=== PATIENT | male | born 1960 | race Caucasian/White ===

== ENCOUNTER 2020-04-12 08:13 | Day surgery (SDC) | payer BC ==
--- NOTE | 2020-04-12 06:39 | EKG ---
Test Date: 2020-04-11 Test Time: 10:33:47 Cardiovascular Physician Assistant: ALESHIA MEASUREMENT RESULTS: Intervals: Rate: 94 KS: 182 QRSD: 70 QT: 346 QTc: 432 [place]: P: 67 KS: 182 QRS: 10 T: 73 INTERPRETIVE STATEMENTS: Sinus rhythm with occasional and consecutive premature ventricular complexes Abnormal ECG No previous ECG available for comparison Electronically Signed On 04-12-20 06:37:42 CDT by Salazar Goodson
--- OUTSIDE RECORDS SUMMARY | 2020-04-12 08:25 | XMS REPORT | Continuity of Care Document ---
:1960 Author Organization [facility] t Address [facility] [place] [address] Care Team Providers Name Role Phone Unavailable Unavailable Unavailable Problems Condition Condition Condition Status Onset Resolution Last Treating Co mments Source Name Details Category Date Date Treatment Clinician Date Hyperchole Hyperchole Problem Active [facility] sterolemia sterolemia 5-21 da 00:00: Medical 00 Group Allergies, Adverse Reactions, Alerts This patient has no known allergies or adverse reactions. Social History Smoking Status Start Date Stop Date Source Light Tobacco Smoker [facility] Medications Ordered Filled Start Stop Current Ordering Indication Dosage Frequency Signature Comments Components Source Medication Medication Date Date Medication? Clinician (SIG) Name Name Ambien 5 mg Ambien 5 mg No 1 Q1D Ambien 5 [place] tablet Take tablet Take mg tablet da 1 tablet 1 tablet Take 1 Medic al every day every day tablet Phillip up by oral by oral every day route. route. by oral route. finasteride finasteride No finasterid [place] 5 mg tablet 5 mg tablet e 5 mg da tablet [facility] hydrocodone hydrocodone No hydrocodon [place] 10 10 e 10 da mg-acetamin mg-acetamin mg-acetami Medical ophen 325 ophen 325 nophen 325 Group mg tablet mg tablet mg tablet Take 1 Take 1 Take 1 tablet tablet tablet every 4 every 4 every 4 hours by hours by hours by oral route. oral route. oral route. levothyroxi levothyroxi No levothyrox [place] ne 75 mcg ne 75 mcg ine 75 mcg da tablet tablet tablet [facility] simvastatin simvastatin No simvastati [place] 40 mg 40 mg n 40 mg da tablet tablet tablet [facility] testosteron testosteron No testostero [place] e cypionate e cypionate ne d a 200 mg/mL 200 mg/mL cypionate Medical intramuscul intramuscul 200 mg/mL Group ar oil ar oil intramuscu lar oil Vital Signs Vital Name Observation Time Observation Value Comments Source BP Diastolic 2020-03-14 00:00:00 80 mm[Hg] [facility] Height 2020-03-14 00:00:00 71 [in_i] [facility] BMI (Body Mass 2020-03-14 00:00:00 26.7 kg/m2 [facility] Index) Group BP Systolic 2020-03-14 00:00:00 128 mm[Hg] [facility] Body Weight 2020-03-14 00:00:00 191.6 [lb_av] [facility] Procedures This patient has no known procedures. Encounters Start End Encounter Admission Attending Care Care Encounter Source Date/Time Date/Time Type Type Clinicians Facility Department ID 2020-03-14 2020-03-14 [facility] [place] - [id number] [facility] 00:00:00 00:00:00 Morales Davis MD: [facility] [address], [place] [address] , Ph. [phone] Results This patient has no known results.
--- OUTSIDE RECORDS SUMMARY | 2020-04-12 08:25 | XMS REPORT | Encounter Summary ---
:1960 Author Care Team Providers Name Role Phone Saad Bright Primary Care Provider [phone] Reason for Visit New Patient Instructions 1. Screening for malignant neopl asm of colon colonoscopy screening (PRO C) 2. Gastro-esophageal reflux dise ase with esophagitis endoscopy, [facility] (PROC) esophageal manometry (SURG ) esophagogastroduodenoscopy (SURG) Discussion Note: None recorded.Patient educational handouts: No information available. Plan of Care Reminders Provider Appointments None recorded. Lab None recorded. Referral None recorded. Procedures Colonoscopy Screening (PROC) 03/14/2020 Endoscopy, [place] (PROC) 03/14/2020 Surgeries Esophageal Manometry (SURG) 03/14/2020 Esophagogastroduodenoscopy (SURG) 03/14/2020 Imaging None recorded. Medications Name Start Date Ambien 5 mg tablet Take 1 tablet every day by oral route. finasteride 5 mg tablet hydrocodone 10 mg-acetaminophen 325 mg tablet Take 1 tablet every 4 hours by oral route. levothyroxine 75 mcg tablet simvastatin 40 mg tablet testosterone cypionate 200 mg/mL intramuscular oil Medications Administered None recorded. Vitals Height Weight BMI Blood Pressure 5 ft 11 in 191.6 lbs 26.7 kg/m2 128/80 mm[Hg] Results Lab Results None recorded. Allergies Code Code System Name Reaction Severity Status Onset NKDA Problems Name Status Onset Date Source Hypercholesterolemia Active 03/14/2020 Procedures Date Name Performed by 10/25/2003 Knee Surgery Information not avai lable Vaccine List None recorded. Social History Tobacco Smoking Status Light Tobacco Smoker (10/28 PPD) Past Encounters 03/14/2020 Screening for Malignant Neoplasm of [place] n; Gastro-esophageal Reflux Disease with Esophagitis Jony Romano MD: [address] [place] [address] [address], [place] [address], Ph. [phone] History of Present Illness Note: cc: screening colonoscopy<div>HPI: 59 yo male with 2 prior colonoscopies, last one in 2011. </div><div>Also complains of reflux - 20 yrs on PPI with heartburn and regurgitation.</div><div>pmh: cholesterol</div><div>psh: colonoscopy, multiple ortho, ing hernia as an </div><div>tob +</div><div>etoh + </div><div>no anticoag</div><div>ros ow neg</div><div>Reflux

Discussed and illustrated the anatomy associated with gastro-esophageal reflux disease (GERD). Discussed signs and symptoms of GERD and relationship of typical signs and symptoms to atypical signs and symptoms referred to as Laryngeal-Pharyngeal Reflux Disease (LPR). Reviewed the concept of pressure differential that defines the lower esophageal sphincter (LES) and the signs and symptoms of esophageal dysmotility and the similarity and overlap of these with the signs and symptoms of GERD. Discussed the signs and symptoms of gastroparesis and the similarity and overlap of these with the signs and symptoms of GERD. Discussed the signs and symptoms of biliary disease and the similarity and overlap of these with the signs and symptoms of GERD. Reviewed the workup to identify and distinguish GERD from other disease processes. Discussed medical therapy for gastroparesis and side effects of the two major medications: metoclopramide (tardive dyskinesia) and erythromycin (interference with cholesterol medications, rash and sun sensitivity). Discussed surgery for gastroparesis (pyloromyotomy), which is not recommended at the time of hiatal repair and fundoplication. Discussed surgical therapy for biliary dyskinesia or gallstones (laparoscopic cholecystectomy)

Reviewed lifestyle changes for GERD. Reviewed medical therapies for GERD. Discussed risks of H2 antagonist therapy and proton pump inhibitor therapy including altered normal physiology, decreased absorption of heavy metals and secondary consequences such as early bone loss and fracture. Increased risk of pneumonias and colitis. Increased incidence of esophageal cancer.

Discussed surgical therapy of GERD and indications for surgical therapy. Discussed history of hiatal hernia repairs and Maya fundoplication. Discussed side effect of bloating syndrome. Reviewed alternatives to Maya fundoplication including Canelo, Hill, Toupet and Pamela modifications. Discussed transoral incisionless fundoplication and absence of bloating syndrome from this procedure as a defining feature of the procedure. Discussed the evaluation of the esophageal hiatus and indications for hiatal hernia repair.

Reviewed risks including bleeding, infection, vagalnerve dysfunction, recurrent GERD, perforation of esophagus or stomach, leak of intestinal content, possible need for longer hospital stay, possible need for further procedures. Reviewed the typical hos pital stay associated with transoral incisionless fundoplication and hiatal hernia repair. Discussedthe postoperative experience, pain and dietary limitations including no carbonated beverages for lifetime. Discussed the six week postoperative recovery diet. Discussed dysphagia and esophageal spasm. R eviewed esophageal musculature and pain associated with strain of the esophageal musculature. Reviewed GI cocktail for esophageal spasm and dysphagia. Discussed possible need for esophageal dilation postoperatively due to fibrosis of esophagus in the setting of prolonged GERD. Discussed referred pain from irritation of the phrenic nerve to the shoulder, compounded medications that may improve pain. Pt verbalized understanding of workup, procedure and risks, and all questions were answered to the patient's satisfaction.

Handout summarizing this information has been provided to the patient. Symptoms survey given to pt.</div><div>
</div><div>Screening Colonoscopy

Discussed and illustrated colon anatomy. Discuss ed signs, symptoms and risks of colon cancer. Reviewed incidence of colon cancer and screening criteria. Discussed interventions to remove or beryl polyps or masses. Discussed iv general anesthesia and need for ride home postop. Reviewed diverticular disease, hemorroids and AVM. Discussed benefits and risks to include bleeding, infection, perforation and gas pains. Discussed prep at length and gave instructions in writing. Discussed repeat colonoscopy criteria. Discussed outpatient procedure. Pt verbalized understanding of procedure and risks, and all questions were answered to the patient's satisfaction. Pt wishes to proceed with colonoscopy. Prep instructions given to the patient in writing.</div><div>
</div> Review of Systems General Surgery ROS Reported By: Patient Constitutional: Constitutional: no fever, no night sweats, no significant weight gain, no significant weight loss, no exercise intolerance Eyes: Eyes: no dry eyes, no irrita tion, no vision change ENMT: Ears: no difficulty hearing, no ear pain. Nose: no frequent nosebleeds, no nose/sinus pr oblems. Mouth/Throat: no sore throat, no bleeding gums, no snoring , no dry mouth, no mouth ulcers, no oral abnormalities, no teeth problems, No Post Nasal Dripping, Constantly clearing the thro at, hiccups, itching throat, (normal) weak voice: constant Respiratory: Respiratory: no cough, no wh eezing, no shortness of breath, no coughing up blood Cardiovascular: Cardiovascular: no chest kary n, no arm pain on exertion, no shortness of breath when wal sarah, no shortness of breath when lying down, no palpitations, no kn own heart murmur Gastrointestinal: Gastrointestinal: no abdomin al pain, no vomiting, normal appetite, no diarrhea, not vomiting bl ood Genitourinary: Genitourinary: no incontinen ce, no difficulty urinating, no hematuria, no increased freq uency Musculoskeletal: Musculoskeletal: no muscle a ches, no muscle weakness, no arthralgias/joint pain, no b ack pain, no swelling in the extremities Integumentary: Skin: no abnormal mole, no j aundice, no rashes Neurologic: Neurologic: no loss of consc iousness, no weakness, no numbness, no seizures, no dizziness, no h eadaches Physical Exam Pre-Op Exam Reported By: Patient Constitutional: General Appearance: healthy- appearing, well-nourished, well-developed Psychiatric: Orientation: to time, to miguelito ce, to person Skin: Inspection and palpation: no rash, no lesions, no induration Eyes: Pupils: PERRLA. EOM: EOMI ENMT: Lips, Teeth, and Gums: yosef l dentition Neck: Neck: supple, FROM Lungs: Auscultation: breath sounds normal, CTA except as noted, no wheezing, no rales/crackles, no rhonchi Cardiovascular: Heart Auscultation: RRR, no murmurs, no rubs, no gallops. Neck vessels: no carotid bruits. Pulses including femoral / pedal: normal throughout Abdomen: Bowel Sounds: normal. Inspec tion and Palpation: soft, non-distended, no tenderness (no guarding, no rebound), no masses, no CVA tenderness. Liver: no n-tender, no hepatomegaly. Spleen: non-tender, no splenomegaly Back: Thoracolumbar Appearance: no rmal curvature Musculoskeletal:: Joints, Bones, and Muscles: normal movement of all extremities, no malalignment, no tenderness. Extremities: no cyanosis, no edema, no varicosities Neurologic: Gait and Station: normal gai t, normal station. Cranial Nerves: grossly intact. Sensation: g rossly intact. Reflexes: DTRs 2+ bilaterally throughout
[2020-04-12] MEDS: OXYMETAZOLINE HCL 0.05% 15ML NAS ONE ×3 (08:44→09:09)
[2020-04-12] MEDS ORDERED: Ringers Lactate 1,000 ML IV ONE (08:47)
[2020-04-12] MEDS ORDERED: OXYMETAZOLINE HCL 0.05% 15ML NAS ONE (08:54)
[2020-04-12] MEDS ORDERED: LIDOCAINE 1% W/EPI 1:100,000 MDV 20 ML VIAL ONE (08:54)
[2020-04-12] MEDS ORDERED: NA CHLORIDE 0.9% 500 ML ONE (08:54)
[2020-04-12] MEDS ORDERED: MIDAZOLAM HCL 2 MG/2 ML INJ ONE (09:20)
[2020-04-12] MEDS ORDERED: propofoL 200 MG/20 ML VIAL IV ONE (09:20)
[2020-04-12] MEDS ORDERED: ROCURONIUM 50 MG/5 ML VIAL IV ONE (09:21)
[2020-04-12] MEDS ORDERED: dexAMETHasone 10 MG/ML VIAL ONE (09:21)
[2020-04-12] MEDS ORDERED: FENTANYL CITR 250 MCG/5 ML ONE (09:21)
[2020-04-12] MEDS ORDERED: LIDOCAINE 2% MPF 5 ML VIAL ONE (09:21)
--- NOTE | 2020-04-12 11:27 | P.BOP ---
Preoperative diagnosis: CRS, ITH, NO Postoperative diagnosis: same Primary procedure: NE with B max antrostomy with removal tissue Secondary procedure: ITR (submucosal) Crutching Contractor: NONE,NONE Estimated blood loss: 20ml Specimen: sinus contents Findings: large intramaxillary cysts Anesthesia: General Complications: None Implants: Propel Contour Fluids & blood products: crystalloid 750ml Transferred to: Recovery Room Condition: Good
[2020-04-12] MEDS ORDERED: ONDANSETRON 4 MG/2 ML VIAL ONE (12:07)
[2020-04-12] MEDS: HYDROMORPHONE HCL 1 MG/ML INJ ONE ×2 (12:16→12:25)
[2020-04-12] MEDS ORDERED: HYDROMORPHONE HCL 1 MG/ML INJ ONE (12:42)
[2020-04-12] MEDS ORDERED: ACETAMINOPHEN 325 MG TABLET ONE (13:15)
[2020-04-12 15:41] VITALS: BP 135/73; TEMP 97.9; O2SAT 92
--- NOTE | 2020-04-13 13:03 | OP ---
Date of Procedure: 04/12/2020 Surgeon: Danielle Valdivia MD Preoperative Diagnoses: Chronic maxillary sinusitis, nasal obstruction, and inferior turbinate hypertrophy. Postoperative Diagnoses: Chronic maxillary sinusitis, nasal obstruction, and inferior turbinate hypertrophy. Procedures: Bilateral nasal endoscopy with maxillary antrostomy and removal of sinus contents with bilateral submucous resection of inferior turbinates with downfracture of inferior turbinates. Indication For Procedure: Mr. Cervantes presented to the ENT Clinic and was treated with maximal medical therapy. He continued to have significant nasal obstruction. A CT scan demonstrated partial opacification of the bilateral maxillary sinuses with findings suggestive of mucous retention cyst versus nasal polyp. The patient was also noted to have large turbinates despite use of intranasal steroid spray. He was strongly cautioned that smoking increases risk of sinus disease and was encouraged to quit, but has been unsuccessful. Anesthesia: General. Estimated Blood Loss: 20 mL. Surgical Specimen: Sinus contents. Surgical Findings: Bilateral enlarged inferior turbinates and bilateral moderate size mucous retention cyst. Description Of Procedure: The patient was brought to the operating room. He was placed under general anesthesia via oral endotracheal tube. His preoperative COVID testing was negative. After successful intubation plane of anesthesia was achieved, the head of bed was rotated 90 degrees. The patient's nasal hairs were trimmed and the nasal cavity was packed with Afrin-soaked pledgets. The patient was draped in the standard fashion for nasal surgery. The nasal pledgets were removed and a 0-degree endoscope was used to perform a nasal endoscopy. Photo documentation was obtained of the middle meatus. The middle turbinate was medialized using a Garland and Afrin-soaked pledget was packed into the middle meatus. After time for effect, the pledget was removed. The uncinate process was palpated and medialized using a maxillary seeker. The uncinate was then removed using a backbiter and 90-degree Blakesley. The antrostomy was noted and enlarged by removal of tissue using a 90-degree Blakesley. The maxillary antrostomy and sinus were reviewed using a 70-degree endoscope. The floor of the sinus was noted to have a moderate-sized mucous retention cyst. This cyst was removed using a maxillary Heuwiser and a Giraffe instrument to remove the surface. After completion, the medial meatus was packed with Afrin-soaked pledgets and attention was turned to the contralateral side. The similar procedure and findings were noted. After completing the maxillary antrostomy, the microdebrider fitted with inferior turbinate blade was prepared. The inferior turbinates were injected with 1% lidocaine with epinephrine to aid in hemostasis. The #15 blade was used to make an incision in the anterior portion of the inferior turbinate. A Iberia elevator was used to develop a submucosal pocket. Inferior turbinate blade was then used to remove submucosal tissue from the inferior turbinate. Some additional tissue from the most inferior aspect was removed in order to optimize the patient's nasal airway. A Platt elevator was then used to downfracture the inferior turbinates in such a way to again improve the patient's nasal airway. The nose was packed with Afrin-soaked pledgets for several minutes. After removal, oozing was minimal. Photo documentation was obtained of the maxillary antrostomies. There was some inadvertent elevation of the mucosa along the posterior aspect of the antrostomy during dissection and removal of the sinus cyst and the decision was made to place a Propel Contour stent in the maxillary antrostomy in order to help this tissue adhere posteriorly and prevent scarring or stenosis of the antrostomy. Contour stents were placed bilaterally. The nasopharynx and nasal cavity were thoroughly suctioned. The oropharynx was suctioned and the patient was returned to care of Anesthesia for awakening and extubation. The decision was made to forego placement of an orogastric tube due to patient's recent procedure and placement of a Hollingsworth acid monitor. The patient was transported to the recovery room in stable condition and will follow up with Dr. Valdivia in about 10 days for evaluation of healing. He is strictly instructed to avoid smoking, to use nasal saline irrigations 3-4 times daily, and to call Dr. Valdivia with any problems, questions, or concerns. OREN/JATIN Voice ID: [id number] Report ID: [id number]
== END 2020-04-12 13:32 | disposition home or self-care (01) ==
LOC: OR 08:13
PROVIDERS: ATTEND Otolaryngology
PROC: 099Q8ZZ Drainage of Right Maxillary Sinus, Via Natural or Artificial Opening Endoscopic (ICD-10-PCS; 2020-04-12)
PROC: 09BL8ZZ Excision of Nasal Turbinate, Via Natural or Artificial Opening Endoscopic (ICD-10-PCS; 2020-04-12)
PROC: 099R8ZZ Drainage of Left Maxillary Sinus, Via Natural or Artificial Opening Endoscopic (ICD-10-PCS; principal; 2020-04-12 09:30)
DX: J32.0 Chronic maxillary sinusitis (principal); J34.3 Hypertrophy of nasal turbinates; J34.89 Other specified disorders of nose and nasal sinuses; J34.1 Cyst and mucocele of nose and nasal sinus; F17.200 Nicotine dependence, unspecified, uncomplicated
CPT/HCPCS: 93005; 88305; 88311; 31267; 30140; J2704; J2250; J3010; J1100; J1170 ×2; J7120; J7040; J2405